=== PATIENT | male | born 1995 | race Caucasian/White ===

== ENCOUNTER 2019-10-31 13:50 | Inpatient (IN) | payer OTHER ==
[2019-10-31 14:11] VITALS: BMI 22.7
--- NOTE | 2019-10-31 14:51 | PDOC ---
Documentation entered by Judith Penaloza SCRIBE, acting as scribe for Gabby Massey MD. Gabby Massey MD: This documentation has been prepared by the Tremaine herrera Brenda, SCRIBE, under my direction and personally reviewed by me in its entirety. I confirm that the documentation accurately reflects all work, treatment, procedures, and medical decision making performed by me. 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 He states he was evaluated by Dr. Thomas, found to have high IOP, then followed up at the urgent care for [facility] yesterday, found to have high intraocular pressure. He was placed on multiple meds to lower his pressure , and states his symptoms have improved. He was advised to go to hospital for a stroke evaluation, as they were concerned that he has had vision loss upon standing for the past few weeks. Asymptomatic at present. Allergies: NKDA, Tree nuts Past surgical History: No known history PCP: Elizabeth Past History - Past Medical History Allergies/Adverse Reactions: Allergies Allergy/AdvReac Type Severity Reaction Status Date / Time aspirin Allergy Verified 10/31/19 18:48 No Known Drug Allergies Allergy Verified 10/31/19 13:52 tree nut Allergy Verified 10/31/19 13:52 cashew nuts Allergy Uncoded 10/31/19 13:52 Home Medications: Ambulatory Orders Brimonidine Tartrate [Alphagan 0.2% -] 1 drop OS TID 10/31/19 Dorzolamide HCl/Timolol Maleat [Cosopt Eye Drops] 1 drop OS BID 10/31/19 Latanoprost 0.005% Eye Drops [Xalatan 0.005% Eye Drops -] 1 drop OS HS 10/31/19 acetaZOLAMIDE [Diamox -] 500 mg PO BID 10/31/19 COPD: No Other medical history: macular edema os, uveitis os, cataract 0s - Immunization History Td Vaccination: No Immunization Up to Date: Yes - Psycho Social/Smoking Cessation Hx Smoking Status: No Smoking History: Never smoked Have you smoked in the past 12 months: No Number of Cigarettes Smoked Daily: 0 Information on smoking cessation initiated: No Hx Alcohol Use: No Substance Use Type: None Review of Systems - Review of Systems Able to Perform ROS?: Yes Comments:: GENERAL/CONSTITUTIONAL: No fever or chills. No weakness. HEAD, EYES, EARS, NOSE AND THROAT: No change in vision. No ear pain or discharge. No sore throat. CARDIOVASCULAR: No chest pain or shortness of breath. RESPIRATORY: No cough, wheezing, or hemoptysis. GASTROINTESTINAL: No nausea, vomiting, diarrhea or constipation. GENITOURINARY: No dysuria, frequency, or change in urination. MUSCULOSKELETAL: No joint or muscle swelling or pain. No neck or back pain. SKIN: No rash. NEUROLOGIC: No headache, vertigo, loss of consciousness, or change in strength/ sensation. ENDOCRINE: No increased thirst. No abnormal weight change. HEMATOLOGIC/LYMPHATIC: No anemia, easy bleeding, or history of blood clots. ALLERGIC/IMMUNOLOGIC: No hives or skin allergy. *Physical Exam - Vital Signs Last Vital Signs Temp Pulse Resp BP Pulse Ox 97.9 F 96 H 18 118/76 99 10/31/19 13:50 10/31/19 13:50 10/31/19 13:50 10/31/19 13:50 10/31/19 13:50 - Physical Exam GENERAL: Awake, alert, and fully oriented, in no acute distress HEAD: No signs of trauma EYES: PERRLA, EOMI, sclera anicteric, conjunctiva clear ENT: Auricles normal inspection, hearing grossly normal, nares patent, oropharynx clear without exudates. Moist mucosa NECK: Normal ROM, supple, no lymphadenopathy, JVD, or masses LUNGS: Breath sounds equal, clear to auscultation bilaterally. No wheezes, and no crackles HEART: Regular rate and rhythm, normal S1 and S2, no murmurs, rubs or gallops EXTREMITIES: Normal range of motion, no edema. No clubbing or cyanosis. No cords, erythema, or tenderness NEUROLOGICAL: Cranial nerves II through XII grossly intact. Normal speech, normal gait. Motor and sensation intact SKIN: Warm, dry, normal turgor, no rashes or lesions noted. Heart Score/ECG Review - ECG Impressions Comment:: EKG read 15:42- NSR 80 bpm, no acute ST/T changes ED Treatment Course - LABORATORY CBC & Chemistry Diagram: 11/01/19 15:35 11/01/19 06:00 Medical Decision Making - Medical Decision Making 10/31/19 14:[address] Vences to discuss further management. 10/31/19 18:07 Pt accepted to hospitalist service for stroke workup. As per my discussion with Dr. Vences, will admit for MRI/MRA, stroke workup. Discharge - Discharge Information Problems reviewed: Yes Clinical Impression/Diagnosis: Vision abnormalities Condition: Improved Disposition: HOME - Admission Yes - Follow up/Referral - Patient Discharge Instructions - Post Discharge Activity
[2019-10-31 15:32] LABS: BASO % 0.4 % (0-2.0); EOS % 2.2 % (0-4.5); HEMATOCRIT 52.1 % (35.4-49); HEMOGLOBIN 17.5 GM/dl (11.7-16.9); LYMPH % 28.4 % (8-40); MCH 29.6 pg (25.7-33.7); MCHC 33.5 g/dl (32.0-35.9); MEAN CELL VOLUME 88.3 fl (80-96); MEAN PLT VOLUME 7.4 fl (7.5-11.1); MONO % 6.7 % (3.8-10.2); NEUT % 62.3 % (42.8-82.8); PLATELET COUNT 331 K/MM3 (134-434); RDW 12.3 % (11.9-15.9); WHITE BLOOD COUNT 7.2 K/mm3 (4.0-10.8)
[2019-10-31 15:37] LABS: INR 1.21 (0.82-1.09); PROTHROMBIN TIME (PATIENT) 13.5 SEC (10.2-13.0)
[2019-10-31 15:42] LABS: ALBUMIN 4.6 g/dl (3.4-5.0); BILIRUBIN,TOTAL 2.4 mg/dl (0.2-1); CALCIUM 9.4 mg/dl (8.5-10); CREATININE 1.1 mg/dl (0.55-1.3); POTASSIUM 3.6 mmol/L (3.5-5.1); TOT PROT 7.5 g/dl (6.4-8.2)
[2019-10-31] MEDS ORDERED: ASPIRIN 81 MG CHEWABLE TABLETS PO ONE (18:06)
[2019-10-31] MEDS ORDERED: ASPIRIN 81 MG CHEWABLE TABLETS ONE (18:09)
--- NOTE | 2019-10-31 21:14 | HP ---
CHIEF COMPLAINT: Blurred Vision PCP: Dr. Johnson Ret[facility] Specialist: Dr. Jah Thomas ([phone]) HISTORY OF PRESENT ILLNESS: This is a 23 y/o male with a PMHx of anterior and intermediate Uveitis, Macular Edema, Cataract. Who presents to the ED with L eye pain which started yesterday. Patient reports that he was evaluated by Dr. Thomas, found to have high IOP, then followed up at the urgent care at the [facility] yesterday, found to have high intraocular pressure. He was placed on multiple meds to lower his pressure, and states his symptoms have improved. He was advised to go to hospital for a stroke evaluation last night, for the persistent vision loss occurring for the past several weeks. Patient denies vision loss at present. He reports having headaches and nausea which he attributes to missed meals. ER course was notable for: (1) Head CT- neg ICH (2) EKG- NSR with no ST or TWI (3) Recent Travel: None PAST MEDICAL HISTORY: See HPI PAST SURGICAL HISTORY: None Social History: Smoking: Never Alcohol: Denies Drugs: Denies Allergies aspirin Allergy (Verified 10/31/19 18:48) contraindicated with acetazolamide No Known Drug Allergies Allergy (Verified 10/31/19 13:52) tree nut Allergy (Verified 10/31/19 13:52) cashew nuts Allergy (Uncoded 10/31/19 13:52) HOME MEDICATIONS: Home Medications Medication Instructions Recorded Brimonidine Tartrate [Alphagan 1 drop OS TID 10/31/19 0.2% -] Dorzolamide HCl/Timolol Maleat 1 drop OS BID 10/31/19 [Cosopt Eye Drops] Latanoprost 0.005% Eye Drops 1 drop OS HS 10/31/19 [Xalatan 0.005% Eye Drops -] acetaZOLAMIDE [Diamox -] 500 mg PO BID 10/31/19 REVIEW OF SYSTEMS CONSTITUTIONAL: Absent: fever, chills, diaphoresis, generalized weakness, malaise, loss of appetite, weight change HEENT: eye pain, visual changes Absent: rhinorrhea, nasal congestion, throat pain, throat swelling, difficulty swallowing, mouth swelling, ear pain CARDIOVASCULAR: Absent: chest pain, syncope, palpitations, irregular heart rate, lightheadedness , peripheral edema RESPIRATORY: Absent: cough, shortness of breath, dyspnea with exertion, orthopnea, wheezing, stridor, hemoptysis GASTROINTESTINAL: nausea Absent: abdominal pain, abdominal distension, vomiting, diarrhea, constipation, melena, hematochezia GENITOURINARY: Absent: dysuria, frequency, urgency, hesitancy, hematuria, flank pain, genital pain MUSCULOSKELETAL: Absent: myalgia, arthralgia, joint swelling, back pain, neck pain SKIN: Absent: rash, itching, pallor HEMATOLOGIC/IMMUNOLOGIC: Absent: easy bleeding, easy bruising, lymphadenopathy, frequent infections ENDOCRINE: Absent: unexplained weight gain, unexplained weight loss, heat intolerance, cold intolerance NEUROLOGIC: headache Absent: focal weakness or paresthesias, dizziness, unsteady gait, seizure, mental status changes, bladder or bowel incontinence PSYCHIATRIC: Absent: anxiety, depression, suicidal or homicidal ideation, hallucinations. PHYSICAL EXAMINATION Vital Signs - 24 hr 10/31/19 10/31/19 13:50 18:30 Temperature 97.9 F 97.8 F Pulse Rate 96 H Pulse Rate [ 87 Left Apical] Respiratory 18 18 Rate Blood Pressure 118/76 Blood Pressure 120/75 [Right Arm] O2 Sat by Pulse 99 99 Oximetry (%) GENERAL: Awake, alert, and fully oriented, in no acute distress. HEAD: Normal with no signs of trauma. EYES: Pupils equal, round and reactive to light, extraocular movements intact, sclera anicteric, conjunctiva clear. No lid lag. EARS, NOSE, THROAT: Ears normal, nares patent, oropharynx clear without exudates. Moist mucous membranes. NECK: Normal range of motion, supple without lymphadenopathy, JVD, or masses. LUNGS: Breath sounds equal, clear to auscultation bilaterally. No wheezes, and no crackles. No accessory muscle use. HEART: Regular rate and rhythm, normal S1 and S2 without murmur, rub or gallop. ABDOMEN: Soft, nontender, not distended, normoactive bowel sounds, no guarding, no rebound, no masses. No hepatomegaly or splenomegaly. MUSCULOSKELETAL: Normal range of motion at all joints. No bony deformities or tenderness. No CVA tenderness. UPPER EXTREMITIES: 2+ pulses, warm, well-perfused. No cyanosis. No clubbing. No peripheral edema. LOWER EXTREMITIES: 2+ pulses, warm, well-perfused. No calf tenderness. No peripheral edema. NEUROLOGICAL: Cranial nerves II-XII intact. Normal speech. Gait not observed. PSYCHIATRIC: Cooperative. Good eye contact. Appropriate mood and affect. SKIN: Warm, dry, normal turgor, no rashes or lesions noted, normal capillary refill. Laboratory Results - last 24 hr 10/31/19 10/31/19 10/31/19 15:10 15:10 15:10 WBC 7.2 RBC 5.90 H Hgb 17.5 H Hct 52.1 H MCV 88.3 MCH 29.6 MCHC 33.5 RDW 12.3 Plt Count 331 MPV 7.4 L Absolute Neuts (auto) 4.5 Neutrophils % 62.3 D Lymphocytes % 28.4 D Monocytes % 6.7 Eosinophils % 2.2 D Basophils % 0.4 PT with INR 13.5 H INR 1.21 Sodium 132 L Potassium 3.6 Chloride 107 Carbon Dioxide 20 L Anion Gap 5 L BUN 21.0 H Creatinine 1.1 Est GFR (CKD-EPI)AfAm 109.09 Est GFR (CKD-EPI)NonAf 94.12 Random Glucose 98 Calcium 9.4 Total Bilirubin 2.4 H AST 27 ALT 40 Alkaline Phosphatase 62 Total Protein 7.5 Albumin 4.6 ASSESSMENT/PLAN: This is a 23 y/o male with a PMHx of anterior, intermediate Uveitis, Macular Edema, Cataract. Admitted to /S for CVA for further evaluation of their emergent condition. Plan: See Problem List FEN Po fluids as tolerated Replete lytes prn Regular Diet DVT ppx OOB Code Status: Full Code Dispo: Requires Inpatient Care Family Medical History Family History: Denies Problem List - Problem (1) CVA (cerebral vascular accident) Assessment/Plan: r/o Stroke NIHSS [address]- no ICH Appreciate Neurology consult MRI Brain pending Neuro checks Swallow eval Monitor CBC, BMP Monitor vitals Asa allergy Code(s): I63.9 - CEREBRAL INFARCTION, UNSPECIFIED (2) Vision abnormalities Assessment/Plan: hx Uvetitis r/o CVA Appreciate Neurology consult Fall Precautions Neurochecks MRI Brain pending Code(s): H53.9 - UNSPECIFIED VISUAL DISTURBANCE (3) Elevated IOP Assessment/Plan: Continue home meds Follow up with Retina, [facility] upon d/c as indicated Code(s): H40.059 - OCULAR HYPERTENSION, UNSPECIFIED EYE Visit type - Emergency Visit Emergency Visit: Yes ED Registration Date: 10/31/19 Care time: The patient presented to the Emergency Department on the above date and was hospitalized for further evaluation of their emergent condition. - New Patient This patient is new to me today: Yes Date on this admission: 10/31/19 - Critical Care Critical Care patient: No
[2019-10-31] MEDS ORDERED: LATANOPROST 0.005% OPHTH SOLN 2.5ML BOTTLE OS SCH (22:00)
[2019-10-31] MEDS ORDERED: PATIENT'S OWN MEDICATION (NON-FORMULARY) (Dorzolamide Hcl/Timolol Maleat [Cosopt Eye Drops OS SCH (22:00)
[2019-10-31] MEDS: BRIMONIDINE TARTRATE 0.2% OPHTHALMIC 5 ML BOTTLE OS SCH (22:49)
[2019-10-31] MEDS: acetaZOLAMIDE 250 MG TABLET PO SCH (22:49)
[2019-10-31] MEDS: TIMOLOL 0.5% OPHTHALMIC SOL 5 ML BOTTLE OS SCH (22:50)
[2019-10-31] MEDS: DORZOLAMIDE 2% HCL OPHTHALMIC SOLUTION 10 ML BOTTLE OS SCH (22:50)
[2019-11-01] MEDS ORDERED: PT OWN MED DRAWER 7, Y5N ONE ×2 (03:08→14:13)
[2019-11-01] MEDS: BRIMONIDINE TARTRATE 0.2% OPHTHALMIC 5 ML BOTTLE OS SCH ×2 (06:50→14:24)
[2019-11-01] MEDS: TIMOLOL 0.5% OPHTHALMIC SOL 5 ML BOTTLE OS SCH (09:00)
[2019-11-01] MEDS: DORZOLAMIDE 2% HCL OPHTHALMIC SOLUTION 10 ML BOTTLE OS SCH (09:00)
[2019-11-01] MEDS: acetaZOLAMIDE 250 MG TABLET PO SCH (09:00)
[2019-11-01 10:17] LABS: ALBUMIN 4.5 g/dl (3.4-5.0); CALCIUM 9.3 mg/dl (8.5-10); CREATININE 1.3 mg/dl (0.55-1.3); MAGNESIUM 2.3 mg/dL (1.8-2.4); POTASSIUM 3.7 mmol/L (3.5-5.1); TOT PROT 7.5 g/dl (6.4-8.2)
--- NOTE | 2019-11-01 10:32 | PN ---
Physical Exam: SUBJECTIVE: Patient seen and examined OBJECTIVE: Vital Signs Period Temp Pulse Resp BP Sys/Stokes Pulse Ox Last 24 Hr 97.5 F-98.0 F 69-96 17-19 99-120/54-76 98-100 GENERAL: The patient is awake, alert, and fully oriented, in no acute distress. HEAD: Normal with no signs of trauma. EYES: PERRL, extraocular movements intact, sclera anicteric, conjunctiva clear. No ptosis. ENT: Ears normal, nares patent, oropharynx clear without exudates, moist mucous membranes. NECK: Trachea midline, full range of motion, supple. LUNGS: Breath sounds equal, clear to auscultation bilaterally, no wheezes, no crackles, no accessory muscle use. HEART: Regular rate and rhythm, S1, S2 without murmur, rub or gallop. ABDOMEN: Soft, nontender, nondistended, normoactive bowel sounds, no guarding, no rebound, no hepatosplenomegaly, no masses. EXTREMITIES: 2+ pulses, warm, well-perfused, no edema. NEUROLOGICAL: Cranial nerves II through XII grossly intact. Normal speech, gait not observed. PSYCH: Normal mood, normal affect. SKIN: Warm, dry, normal turgor, no rashes or lesions noted Laboratory Results - last 24 hr 10/31/19 10/31/19 10/31/19 15:10 15:10 15:10 WBC 7.2 RBC 5.90 H Hgb 17.5 H Hct 52.1 H MCV 88.3 MCH 29.6 MCHC 33.5 RDW 12.3 Plt Count 331 MPV 7.4 L Absolute Neuts (auto) 4.5 Neutrophils % 62.3 D Lymphocytes % 28.4 D Monocytes % 6.7 Eosinophils % 2.2 D Basophils % 0.4 PT with INR 13.5 H INR 1.21 Sodium 132 L Potassium 3.6 Chloride 107 Carbon Dioxide 20 L Anion Gap 5 L BUN 21.0 H Creatinine 1.1 Est GFR (CKD-EPI)AfAm 109.09 Est GFR (CKD-EPI)NonAf 94.12 Random Glucose 98 Calcium 9.4 Magnesium Total Bilirubin 2.4 H AST 27 ALT 40 Alkaline Phosphatase 62 Total Protein 7.5 Albumin 4.6 11/01/19 06:00 WBC RBC Hgb Hct MCV MCH MCHC RDW Plt Count MPV Absolute Neuts (auto) Neutrophils % Lymphocytes % Monocytes % Eosinophils % Basophils % PT with INR INR Sodium 135 L Potassium 3.7 Chloride 106 Carbon Dioxide 23 Anion Gap 6 L BUN 22.0 H Creatinine 1.3 Est GFR (CKD-EPI)AfAm 89.14 Est GFR (CKD-EPI)NonAf 76.91 Random Glucose 82 Calcium 9.3 Magnesium 2.3 Total Bilirubin 2.0 H AST 24 ALT 36 Alkaline Phosphatase 56 Total Protein 7.5 Albumin 4.5 Active Medications Generic Name Dose Route Start Last Admin Trade Name Freq PRN Reason Stop Dose Admin Acetazolamide 500 mg 10/31/19 22:00 11/01/19 09:00 Diamox - PO 500 mg BID SUMMER Administration Brimonidine Tartrate 1 drop 10/31/19 22:00 11/01/19 06:50 Alphagan 0.2% - OS 1 drop TID SUMMER Administration Dorzolamide HCl 1 drop 10/31/19 22:00 11/01/19 09:00 Trusopt 2% OS 1 drop BID SUMMER Administration Latanoprost 1 drop 10/31/19 22:00 10/31/19 22:51 Xalatan 0.005% Eye Drops - OS Not Given HS SUMMER Timolol Maleate 1 drop 10/31/19 22:00 11/01/19 09:00 Timoptic 0.5% OS 1 drop BID SUMMER Administration ASSESSMENT/PLAN:
[2019-11-01 12:57] VITALS: TEMP 97.6
--- NOTE | 2019-11-01 13:16 | EKG ---
Test Reason : Blood Pressure : / mmHG Vent. Rate : 080 BPM Atrial Rate : 080 BPM P-R Int : 150 ms QRS Dur : 082 ms QT Int : 356 ms P-R-T Axes : 054 085 058 degrees QTc Int : 410 ms NORMAL SINUS RHYTHM NORMAL ECG NO PREVIOUS ECGS AVAILABLE Confirmed by SCOT GARCIA MD ([id number]) on 11/01/2019 1:16:29 PM Referred By: MD JETT Confirmed By:SCOT GARCIA MD
[2019-11-01 14:49] VITALS: BP 98/56; PULSE 97
--- NOTE | 2019-11-01 15:43 | CON.NEURO ---
Consult - Alcohol/Substance Use Hx Alcohol Use: No - Smoking History Smoking history: Never smoked Have you smoked in the past 12 months: No Aproximately how many cigarettes per day: 0 Home Medications - Allergies Allergies/Adverse Reactions: Allergies Allergy/AdvReac Type Severity Reaction Status Date / Time aspirin Allergy Verified 10/31/19 18:48 No Known Drug Allergies Allergy Verified 10/31/19 13:52 tree nut Allergy Verified 10/31/19 13:52 cashew nuts Allergy Uncoded 10/31/19 13:52 - Home Medications Home Medications: Ambulatory Orders Brimonidine Tartrate [Alphagan 0.2% -] 1 drop OS TID 10/31/19 Dorzolamide HCl/Timolol Maleat [Cosopt Eye Drops] 1 drop OS BID 10/31/19 Latanoprost 0.005% Eye Drops [Xalatan 0.005% Eye Drops -] 1 drop OS HS 10/31/19 acetaZOLAMIDE [Diamox -] 500 mg PO BID 10/31/19 Physical Exam-Neuro Vital Signs: Vital Signs Temperature 97.6 F 11/01/19 14:00 Pulse Rate 97 H 11/01/19 14:00 Respiratory Rate 17 11/01/19 14:00 Blood Pressure 98/56 L 11/01/19 14:00 O2 Sat by Pulse Oximetry (%) 99 11/01/19 14:00 Labs: CBC, BMP 10/31/19 15:10 11/01/19 06:00 INR, PTT INR 1.21 (0.82-1.09) 10/31/19 15:10 Assessment/Plan cc Left eye transient diminished vision HPI 23 yea rold male diagnosed with intermedia uveitis, macular edema, and cataract. Patient has intermittnet ? visual loss and was admitted for possible stroke. He denies any visual symptoms , there is no redness in eye. Patient has mri of brain, mrv, mra, cta of neck, all test is unremarkable. he denies any dysphagia, dysarthria, dipolopia, weakness or numbness. PAST MEDICAL HISTORY: See HPI PAST SURGICAL HISTORY: None Social History: Smoking: Never Alcohol: Denies Drugs: Denies Allergies aspirin Allergy (Verified 10/31/19 18:48) contraindicated with acetazolamide No Known Drug Allergies Allergy (Verified 10/31/19 13:52) tree nut Allergy (Verified 10/31/19 13:52) cashew nuts Allergy (Uncoded 10/31/19 13:52) HOME MEDICATIONS: Home Medications Medication Instructions Recorded Brimonidine Tartrate [Alphagan 1 drop OS TID 10/31/19 0.2% -] Dorzolamide HCl/Timolol Maleat 1 drop OS BID 10/31/19 [Cosopt Eye Drops] Latanoprost 0.005% Eye Drops 1 drop OS HS 10/31/19 [Xalatan 0.005% Eye Drops -] acetaZOLAMIDE [Diamox -] 500 mg PO BID 10/31/19 ROS,FH,SH reviewed in chart NEUROLOGICAL EXAMINATION Alert oriented x 3, neck is supple vss, afebrile eomi, pupils reactive no face asymmetry, moving all ext sensation is noraml gait and coordination is normal mri ofbrain, mra of brain, cta of neck, mrv wnl Assessment/Plan 23 year old male diagnosed with intermedia uveitis, macular edema, and cataract. presented with intermittent transient visual loss , was sent for possible stroke, work up negative Plan: most marion visual symptoms are due to his eye condition, unlikley to be neurological . No evidence of carotid dissectoin, stenosis or stroke or cerebral venous thrombosis - FOLLOW Up outpatient Thanking you so much Mike Vences MD
--- NOTE | 2019-11-01 16:40 | DS ---
Physical Exam: SUBJECTIVE: Patient seen and examined OBJECTIVE: Vital Signs Period Temp Pulse Resp BP Sys/Stokes Pulse Ox Last 24 Hr 97.5 F-98.0 F 64-97 17-19 98-120/54-75 98-100 PHYSICAL EXAM GENERAL: The patient is awake, alert, and fully oriented, in no acute distress. HEAD: Normal with no signs of trauma. EYES: PERRL, extraocular movements intact, sclera anicteric, conjunctiva clear. ENT: Ears normal, nares patent, oropharynx clear without exudates, moist mucous membranes. NECK: Trachea midline, full range of motion, supple. LUNGS: Breath sounds equal, clear to auscultation bilaterally, no wheezes, no crackles, no accessory muscle use. HEART: Regular rate and rhythm, S1, S2 without murmur, rub or gallop. ABDOMEN: Soft, nontender, nondistended, normoactive bowel sounds, no guarding, no rebound, no hepatosplenomegaly, no masses. EXTREMITIES: 2+ pulses, warm, well-perfused, no edema. NEUROLOGICAL: Cranial nerves II through XII grossly intact. Normal speech, gait not observed. PSYCH: Normal mood, normal affect. SKIN: Warm, dry, normal turgor, no rashes or lesions noted. LABS Laboratory Results - last 24 hr 11/01/19 11/01/19 06:00 07:20 Sodium 135 L Potassium 3.7 Chloride 106 Carbon Dioxide 23 Anion Gap 6 L BUN 22.0 H Creatinine 1.3 Est GFR (CKD-EPI)AfAm 89.14 Est GFR (CKD-EPI)NonAf 76.91 Random Glucose 82 Hemoglobin A1c % 4.9 Calcium 9.3 Magnesium 2.3 Total Bilirubin 2.0 H AST 24 ALT 36 Alkaline Phosphatase 56 Total Protein 7.5 Albumin 4.5 HOSPITAL COURSE: Date of Admission:10/31/19 Date of Discharge: 11/01/19 Pre hospital course 23 year-old male with a PMH significant for anterior and intermediate uveitis, macular edema, and cataracts. Patient was seen by his regular opthalmologists and found to have elevated intraocular pressure. He was advised to go to a hospital for a stroke evaluation last night for intermittent, transient vision loss over the past several weeks. Patient denies vision loss at present. He reports having headaches and nausea which he attributes to missed meals. ER course (1) Head CT- neg ICH (2) EKG- NSR with no ST or TWI Subsequent hospital course MRI of brain, MRA of brain, CTA of neck, and MRV all wnl. Per neurology, visual symptoms are likely due to his eye condition, unlikley to be neurological. No evidence of carotid dissectoin, stenosis or stroke or cerebral venous thrombosis. Minutes to complete discharge: 35 Discharge Summary Problems reviewed: Yes Reason For Visit: ABNORMAL VISION Current Active Problems CVA (cerebral vascular accident) (Acute) Elevated IOP (Acute) Vision abnormalities (Acute) Condition: Improved - Instructions Diet, Activity, Other Instructions: Continue to take your prescribed medications. You have been given copies of your imaging studies and reports to share with your providers. Referrals: Garth Johnson MD [Primary Care Provider] - Disposition: HOME - Home Medications Comprehensive Discharge Medication List: Ambulatory Orders Brimonidine Tartrate [Alphagan 0.2% -] 1 drop OS TID 10/31/19 Dorzolamide HCl/Timolol Maleat [Cosopt Eye Drops] 1 drop OS BID 10/31/19 Latanoprost 0.005% Eye Drops [Xalatan 0.005% Eye Drops -] 1 drop OS HS 10/31/19 acetaZOLAMIDE [Diamox -] 500 mg PO BID 10/31/19 This patient is new to me today: Yes Date on this admission: 11/05/19 Emergency Visit: Yes ED Registration Date: 10/31/19 Care time: The patient presented to the Emergency Department on the above date and was hospitalized for further evaluation of their emergent condition. Critical Care patient: No - Discharge Referral Referred to [facility] Med P.C.: No
[2019-11-01 16:44] LABS: CHOLESTEROL 208 mg/dl (50-200); HDL CHOLESTEROL 42 mg/dl (40-60); TRIGLYCERIDES 198 mg/dl (0-150)
[2019-11-01 16:47] LABS: BASO % 0.5 % (0-2.0); EOS % 2.1 % (0-4.5); HEMATOCRIT 50.8 % (35.4-49); HEMOGLOBIN 17.3 GM/dL (11.7-16.9); LYMPH % 32.5 % (8-40); MCH 29.6 pg (25.7-33.7); MCHC 34.1 g/dl (32.0-35.9); MEAN PLT VOLUME 7.8 fl (7.5-11.1); MONO % 6.8 % (3.8-10.2); NEUT % 58.1 % (42.8-82.8); PLATELET COUNT 318 K/MM3 (134-434); RBC 5.84 M/mm3 (4.00-5.60); RDW 13.5 % (11.9-15.9); WHITE BLOOD COUNT 7.3 K/mm3 (4.0-10.0)
[2019-11-01 16:49] LABS: LDL CHOLESTEROL (ONLY SJRH) 127 mg/dL (5-100)
[2019-11-01 18:47] LABS: ACTIVATED PTT 30.4 SECONDS (25.2-36.5); INR 1.16 (0.82-1.09)
== END 2019-11-01 17:15 | disposition home or self-care (01) | DRG 82 ==
LOC: FER 13:50 → FM/S 18:07
PROVIDERS: ADMIT Internal Medicine; ATTEND Nurse Practitioner Acute Care
DX: H35.81 Retinal edema (principal); H26.9 Unspecified cataract; H40.052 Ocular hypertension, left eye; H54.60 Unqualified visual loss, one eye, unspecified; H20.9 Unspecified iridocyclitis
CPT/HCPCS: 36415; 70450-TC; 70498-TC; 70545-TC; 70552-TC; 80053; 80061; 83036; 83721; 83735; 84484; 85025; 85610; 85730; 93005; 99285-25; A9579; Q9967

== ENCOUNTER 2020-06-23 13:42 | Emergency (ER) | payer OTHER ==
--- OUTSIDE RECORDS SUMMARY | 2020-06-23 13:51 | XMS ---
:1995 Author Organization [facility] Care Team Providers Name Role Phone Darrell Tavarez C Unavailable Androne, C Unavailable Androne, C Unavailable Androne, C Unavailable Androne, C Unavailable Androne, C Unavailable Androne, C Unavailable Androne, C Unavailable Androne, C Unavailable TAM OLIVAREZ Unavailable Unavailable Re-disclosure Warning The records that you are about to access may contain information from federally- assisted alcohol or drug abuse programs. If such information is present, then the following federally mandated warning applies: This information has been disclosed to you from records protected by federal confidentiality rules (42 CFR part 2). The federal rules prohibit you from making any further disclosure of this information unless further disclosure is expressly permitted by the written consent of the person to whom it pertains or as otherwise permitted by 42 CFR part 2. A general authorization for the release of medical or other information is NOT sufficient for this purpose. The Federal rules restrict any use of the information to criminally investigate or prosecute any alcohol or drug abuse patient.The records that you are about to access may contain highly sensitive health information, the redisclosure of which is protected by Article 27-F of the [facility] Public Health law. If you continue you may haveaccess to information: Regarding HIV / AIDS; Provided by facilities licensed or operated by the [facility] Office of Mental Health; or Provided by the [facility] Office for People With Developmental Disabilities. If such information is present, then the following [facility] mandated warning applies: This information has been disclosed to you from confidential records which are protected by state law. State law prohibits you from making any further disclosure of this information without the specific written consent of the person to whom it pertains, or as otherwise permitted by law. Any unauthorized further disclosure in violation of state law may result in a fine or residential sentence or both. A general authorization for the release of medical or other information is NOT sufficient authorization for further disclosure. Encounters Encounter Providers Location Date Indications Data Source(s ) Attender: Darrell 04/12/2020 [facility] ([facility] 12:00:00 AM [facility]T [facility], [facility]) Office Attender: Darrell Tavarez 04/12/2020 12:00:00 AM EDT [facility] ([facility]) Office Outpatient Attender: SHER 12/17/2019 06:00:00 Z03.818 [facility] PotentialNEW [facility] L[facility] VEGASPotentialdmitter: KATIE OLIVAREZ [facility] Z03.818 Insurance Providers Payer name Policy type Policy ID Covered Covered constitution party's Policy P reyna / Coverage constitution party ID relationship to Ibanez Inf ormation type ib[facility]z [facility] MED[facility] [id number] [facility] MED[place]ID [id number] SP [id number] REEVES [id number] [facility] AETNA (PPO) [id number] [employer] [id number] SP [id number] AETNA HMO [id number] SP [id number] AETNA PPO [id number] SP [id number] Problems, Conditions, and Diagnoses Code Display Name Description Problem Type Effective Data Sour ce(s) Dates N48.89 Other specified OTHER SPECIFIED Problem 04/12/2020 [facility] ([facility] disorders of DISORDERS OF 12:00:00 AM [facility], penis PENIS EDT PC) D45 Polycythemia vera POLYCYTHEMIA VERA Problem 04/12/2020 [facility] ([facility] 12:00:00 [facility], [facility]T [facility]) R05 Cough COUGH Problem 12/11/2019 [facility] (St 12:00:00 [facility], EDT [facility]) A08.4 Viral intestinal VIRAL INTESTINAL Problem 2019 [facility] (St infection, INFECTION, 12:00:00 AM [facility], unspecified UNSPECIFIED EDT PC) Z03.818 Encounter for ENCNTR FOR OBS Diagnosis 12/17/2019 [facility] observation for FOR [facility] OTH BIOLG AGENTS EDT Care [facility] poration exposure to other RULED OUT biological agents ruled out Surgeries/Procedures Procedure Description Date Indications Data Source(s) Documentation of current 04/12/2020 [facility] ([facility] (procedure) 12:00:00 AM EDT polly, ) Documentation of current 04/12/2020 [facility] ([facility] (procedure) 12:00:00 AM EDT polly, ) Documentation of current 04/12/2020 [facility] ([facility] (procedure) 12:00:00 AM EDT polly, ) OFFICE OUTPATIENT VISIT 04/12/2020 [facility] ([facility] 25 MINUTES 12:00:00 AM [facility], ) Documentation of current 12/11/2019 [facility] ([facility] medications (procedure) 12:00:00 AM EDT polly, ) Documentation of current 12/11/2019 [facility] ([facility] (procedure) 12:00:00 AM EDT [facility], PC) Documentation of current 12/11/2019 [facility] ([facility] medications (procedure) 12:00:00 AM EDT polly, ) OFFICE OUTPATIENT VISIT 12/11/2019 [facility] ([facility] 15 MINUTES 12:00:00 AM [facility], ) Documentation of current 2019 [facility] ([facility] medications (procedure) 12:00:00 AM EDT polly, ) Documentation of current 2019 [facility] ([facility] medications (procedure) 12:00:00 AM EDT Julissa matias, ) Documentation of current 2019 [facility] ([facility] medications (procedure) 12:00:00 AM EDT Julissa matias ) Documentation of current 2019 [facility] ([facility] medications (procedure) 12:00:00 AM EDT sachinical ) Documentation of current 2019 [facility] ([facility] medications (procedure) 12:00:00 AM EDT polly ) OFFICE OUTPATIENT VISIT 2019 [facility] ([facility] 15 MINUTES 12:00:00 AM [facility] Medical, ) Results ID Date Data Source [id number] 12/17/2019 12:00:00 AM EDT [facility] Name Value Range Interpretation Code Description Data Bety rce(s) Supporting Document(s ) 2019-nCoV [facility] RNA XXX CL+probe- Imp This lab was ordered by [facility] and reported by [employer] Procedure Social History Code Duration Value Status Description Data Source(s ) Smoking 04/12/2020 Doesn`t Smoke completed Doesn`t Smoke [facility] ( St 12:00:00 AM EDT Drinks an Drinks an [facility], occasional beer occasional beer PC) Smoking 04/12/2020 Unknown if ever completed Unknown if ever [facility] (St 12:00:00 AM EDT smoked smoked [facility], [facility]) Vital Signs ID Date Data Source UNK Name Value Range Interpretation Code Description Data Source(s) Heart rate 80 /min 80 /min [facility] ([facility], ) Respiratory rate 14 /min 14 /min [facility] ( [facility], ) Body mass index 22.7 kg/m2 22.7 kg/m2 [facility] ([facility] (BMI) [Ratio] Medical, ) Diastolic blood 76 mm[Hg] 76 mm[Hg] [facility] ([facility] Medical, ) Systolic blood 112 mm[Hg] 112 mm[Hg] [facility] ([facility] pressure [facility], ) Body weight 156 lb 156 lb [facility] ([facility], ) Body height 69.5 in 69.5 in [facility] ([facility], ) Heart rate 72 /min 72 /min [facility] ([facility], ) Respiratory rate 14 /min 14 /min [facility] ( [facility], ) Body temperature 97.9 F 97.9 F [facility] ( [facility]) Body mass index 21 kg/m2 21 kg/m2 [facility] ([facility] (BMI) [Ratio] [facility] ) Diastolic blood 60 mm[Hg] 60 mm[Hg] [facility] ([facility]) Systolic blood 106 mm[Hg] 106 mm[Hg] [facility] ([facility], ) Body weight 144 lb 144 lb [facility] ([facility], ) Body height 69.5 in 69.5 in [facility] ([facility])
--- NOTE | 2020-06-23 14:03 | TELE ---
HPI Do you have fever,cough or shortness of breath?: No - General Reason For Visit: COVID 19 TESTING History Source: Patient Exam Limitations: No Limitations - History of Present Illness 06/23/20 13:56 Patient is a 24-year-old male who participated in a virtual urgent care visit who is requesting a Covid swab secondary to having a sore throat, feeling tired for the last 2 days. He denies any known Covid contacts. He denies any cough, fever, chills, dyspnea. He has not traveled outside of the within the last 30 days, or outside of [facility] in the last 14. The patient states he is taken off of work and wanted to be certain he was Covid negative prior to returning. He has a history of intermittent increased ocular pressure and is allergic to tree nuts. Past History - Medical History Allergies/Adverse Reactions: Allergies Allergy/AdvReac Type Severity Reaction Status Date / Time aspirin Allergy Verified 10/31/19 18:48 No Known Drug Allergies Allergy Verified 10/31/19 13:52 tree nut Allergy Verified 10/31/19 13:52 cashew nuts Allergy Uncoded 10/31/19 13:52 Home Medications: Ambulatory Orders Brimonidine Tartrate [Alphagan 0.2% -] 1 drop OS TID 10/31/19 Dorzolamide HCl/Timolol Maleat [Cosopt Eye Drops] 1 drop OS BID 10/31/19 Latanoprost 0.005% Eye Drops [Xalatan 0.005% Eye Drops -] 1 drop OS HS 10/31/19 acetaZOLAMIDE [Diamox -] 500 mg PO BID 10/31/19 COPD: No - Immunization History Td Vaccination: No Immunization Up to Date: Yes - Psycho-Social/Smoking History Smoking Status: No Smoking History: Never smoked Have you smoked in the past 12 months: No Number of Cigarettes Smoked Daily: 0 Review of Systems - Review of Systems Comments:: 06/23/20 13:59 - Review of Systems Able to Perform ROS?: Yes Constitutional: No: Fever, Chills, Loss of Appetite, Night Sweats, Weakness; positive: Feeling tired, Covid swab HEENTM: No: Eye Pain, Vision changes, Ear Pain, Throat Swelling, Mouth Pain, Difficulty Swallowing; positive: Sore throat Respiratory: No: Cough, Shortness of Breath, Wheezing, Sputum Production Cardiac (ROS): No: Chest Pain, Chest Tightness, Palpitations, Irregular Heart Beat, Edema ABD/GI: No: Nausea, Vomiting, Abdominal Pain, Diarrhea : No Dysuria, No Hematuria, No Frequency, No Urgency Musculoskeletal: No: Muscle Pain, Back Pain, Joint Pain, Muscle Weakness, Neck Pain Integumentary: No: Lesions, Rash Neurological: No: Headache, Numbness, Tingling, Weakness, Speech Difficulties *Physical Exam - Physical Exam 06/23/20 13:59 - Physical Exam General Appearance: Nourished, Appropriately Dressed, No Distress HEENT: EOMI, Normal Voice, Hearing Grossly Normal Neck: No Decreased range of motion Respiratory/Chest: Normal chest excursion appreciated, No Accessory Muscle Use Gastrointestinal/Abdominal: No distention Musculoskeletal: Normal Inspection Integumentary: Normal Color, Dry. 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 Plan: -Covid swab ordered -Covid counseling given, isolation precautions reviewed -Patient to proceed to the [facility] for testing -He understands and agrees with this treatment plan Discharge Diagnosis at time of Disposition: Sore throat, Counseled about COVID-19 virus infection - Referrals Follow-up Referral(s): Franklyn Reed MD [Primary Care Provider] - - Patient Instructions Discharge Instructions: [facility] - Coronavirus Instructions, [facility] COVID-19 Isolation Protocol Additional Discharge Instructions: You were seen via a telehealth visit and tested for COVID today. You should follow isolation precautions as per [facility] guidelines. Thank you for participating in our telehealth medicine program. If you have any worsening symptoms such as high fever, shaking chills, profuse vomiting or any other worsening symptoms you should go to your local emergency department immediately or follow up with your primary care doctor immediately. If you become symptomatic: Take Tylenol 650 mg every 6 hours as needed for fever or pain. You may take Robitussin or other [id number] cough syrup. Follow the dosing instructions on the bottle. Warm tea, honey, and salt water gargles may help your symptoms. Please take precautions and self quarantine for 2 weeks and follow-up with your primary care doctor and the Department of Health. Return to the nearest emergency department for shortness of breath, difficulty breathing, chest pain, or if you have any changes in your symptoms. - Discharge Disposition: HOME Condition at time of Disposition: Stable
== END 2020-06-23 14:05 | disposition home or self-care (01) ==
LOC: JVIRT 13:42
DX: Z11.59 Encounter for screening for other viral diseases (principal)
CPT/HCPCS: C9803; Q3014-GT; U0003

== ENCOUNTER 2020-10-27 11:20 | Emergency (ER) | payer OTHER | END 2020-10-27 13:23 | disposition home or self-care (01) | LOC: JVIRT 11:20 | DX: R09.81 Nasal congestion (principal); Z11.52 Encounter for screening for COVID-19 | CPT/HCPCS: C9803; G2251-GT; Q3014-GT; U0003 ==

== ENCOUNTER 2021-04-02 16:05 | Emergency (ER) | payer OTHER ==
[2021-04-04 14:07] LABS: SARS-CoV-2 NAA Not Detected (Not Detected)
== END 2021-04-02 17:40 | disposition home or self-care (01) ==
LOC: JVIRT 16:05
DX: Z11.52 Encounter for screening for COVID-19 (principal)
CPT/HCPCS: C9803; Q3014-GT; U0003; U0005

== ENCOUNTER 2022-07-25 15:09 | Emergency (ER) | payer OTHER ==
[2022-07-25 15:24] VITALS: BP 116/87; PULSE 78; RESP 16; TEMP 98; BMI 25.8
== END 2022-07-25 15:45 | disposition home or self-care (01) ==
LOC: FER 15:09
DX: S61.317A Laceration without foreign body of left little finger with damage to nail, initial encounter (principal); W26.0XXA Contact with knife, initial encounter
CPT/HCPCS: 99281-25